=== PATIENT | female | born 1980 | race African-American/Black ===

== ENCOUNTER 2016-08-23 08:15 | Emergency (ER) | payer MEDICAID ==
[~2016-08-23] VITALS: Ht 165.1 cm; Wt 92.0 kg
[~2016-08-23 08:15] MED LIST: DICL50 PO; ROBA750T3 PO
[2016-08-23 08:18] VITALS: BP 116/74; PULSE 52; RESP 14; TEMP 98.1; O2SAT 98
[2016-08-23] MEDS ORDERED: ACET1CAP18 PO (08:28)
[2016-08-23] MEDS ORDERED: ASPI-157 PO (08:28)
--- NOTE | 2016-08-23 08:31 | PD ---
HPI . Acute on chronic back pain Chief Complaint: Back/ Neck Pain or Injury Time Seen by Provider: 08:31 Travel History International Travel<30 days: No Contact w/Intl Traveler<30days: No Traveled to known affect area: No History of Present Illness HPI 35-year-old female with history of chronic back pain stemming back to 2000 with a slip and fall accident and herniated disc here with complaints of worsening back pain. Patient tells me that she's been experiencing intermittent back pain for the past 3 weeks. She is here requesting referrals, xray, and MRI imaging to see if there is anything new with her back. She tells me the pain is moderate to severe and she has been trying Midol, they are aspirin, Tylenol and energy drinks for her pain. She decided to come to the emergency department for further evaluation. At the time of examination she is ambulatory , denies any bowel or bladder dysfunction, or saddle anesthesia. She denies any chance of and tells me her tubes are cut, burned and dry. PFSH Past Medical History ?: Not LMP: 07/23/16 Social History Alcohol Use: No Tobacco Use: No Substance Use: No Allergies-Medications (Allergen,Severity, Reaction): Coded Allergies: Penicillin (Verified Allergy, Severe, Swelling, 08/23/16) Reported Meds & Prescriptions Reported Meds & Active Scripts Active Ibuprofen 800 Mg Tab 800 Mg PO TID Flexeril (Cyclobenzaprine HCl) 5 Mg Tab 5 Mg PO TID Reported Tylenol (Acetaminophen) 325 Mg Cap 325 Mg PO Q6H PRN Dee Back & Body (Aspirin-Caffeine) 500-32.5 Mg Tab 1 Tab PO DIRECTED Review of Systems General / Constitutional: No: Fever Eyes: No: Visual changes HENT: No: Headaches Cardiovascular: No: Chest Pain or Discomfort Respiratory: No: Shortness of Breath Gastrointestinal: No: Abdominal Pain Genitourinary: No: Dysuria Musculoskeletal: Positive: Pain (back pain) Skin: No Rash Neurologic: No: Weakness Psychiatric: No: Depression Endocrine: No: Polydipsia Hematologic/Lymphatic: No: Easy Bruising Physical Exam Narrative GENERAL: AAO x 3, no acute distress, Well-nourished, well-developed patient. SKIN: Warm and dry. No visible rashes or bruising. HEAD: Normocephalic and atraumatic. EYES: No scleral icterus. No injection or drainage. ENT: No nasal drainage noted. Mucous membranes pink. Airway patent. NECK: Supple, trachea midline. No JVD. CARDIOVASCULAR: Regular rate and rhythm without murmurs, gallops, or rubs. RESPIRATORY: Breath sounds equal bilaterally. No accessory muscle use. No rhonchi or rales. GASTROINTESTINAL: Normal visual inspection EXTREMITIES: No cyanosis or edema. NEURO: CN 2-12 intact, sensation is normal, BACK: Nontender without obvious deformity. No CVA tenderness. No spinal process tenderness. There is some paraspinal tenderness in the mid to lower back. Straight leg raise is negative bilaterally. PSYCH: AAO x 3, normal affect. Data Data Last Documented VS Vital Signs Date Time Temp Pulse Resp B/P Pulse Ox O2 Delivery O2 Flow Rate FiO2 08/23/16 08:18 98.1 52 14 116/74 98 MDM Medical Decision Making Medical Screen Exam Complete: Yes Emergency Medical Condition: Yes Medical Record Reviewed: Yes Differential Diagnosis Acute on chronic back pain, lumbar radiculopathy, muscle strain ,less likely cauda equina, Narrative Course 35-year-old female with history of chronic back pain stemming back to 2000 with a slip and fall accident and herniated disc here with complaints of worsening back pain. Patient tells me that she's been experiencing intermittent back pain for the past 3 weeks. She is here requesting referrals, xray, and MRI imaging to see if there is anything new with her back. She tells me the pain is moderate to severe and she has been trying Midol, they are aspirin, Tylenol and energy drinks for her pain. She decided to come to the emergency department for further evaluation. At the time of examination she is ambulatory , denies any bowel or bladder dysfunction, or saddle anesthesia. Patient seen and examined. She is not in any acute signs of distress. She is fully ambulatory. Examination is essentially benign except for some paraspinal tenderness. I have offered her both Toradol and Norflex in the emergency department, which she declines. I will discharge her home with course of muscle relaxers and anti- inflammatories. She will need to follow-up with her primary care provider for further recommendations for imaging and referrals. I explained to her that imaging is not indicated today. Patient verbalized understanding of instructions and questions were answered. I advised them if their condition worsens, please return to the nearest emergency room for further care. Diagnosis Primary Impression: Acute exacerbation of chronic low back pain Patient Instructions: General Instructions Additional Instructions: Please return to emergency department if your symptoms return or worsen. Follow up with your primary care provider. Take medications as prescribed. As we discussed, you will need to follow-up with her primary care provider for recommendations and referrals. Med/Other Pt SpecificInfo: Prescription(s) given Scripts Ibuprofen 800 Mg Mva038 Mg PO TID #21 TAB Prov:Alex Donaldson MD 08/23/16 Cyclobenzaprine (Flexeril)5 Mg Tab5 Mg PO TID #21 TAB Prov:Alex Donaldson MD 08/23/16 Disposition: 01 DISCHARGE HOME Condition: Stable Sabina Brito Aug 23, 2016 08:31
[2016-08-23] MEDS ORDERED: IBUP800T23 PO (08:37)
[2016-08-23] MEDS ORDERED: CYCL5TAB PO (08:37)
== END 2016-08-23 09:29 | disposition home or self-care (01) ==
LOC: NEPK 08:15
DX: M54.5 Low back pain (principal); G89.29 Other chronic pain
CPT/HCPCS: 99282

== ENCOUNTER 2017-03-30 04:13 | Emergency (ER) | payer MEDICAID ==
[~2017-03-30] VITALS: Ht 167.6 cm; Wt 95.0 kg
[~2017-03-30 04:13] MED LIST changes: +ACET1CAP18 PO; +ASPI-157 PO; +CYCL5TAB PO; -DICL50 PO; +IBUP1TAB7 PO; -ROBA750T3 PO
[2017-03-30 04:15] VITALS: BP 133/62; PULSE 61; RESP 18; TEMP 98.3; O2SAT 100
--- NOTE | 2017-03-30 04:27 | PD ---
HPI Chief Complaint: Eye Problems/Injury Time Seen by Provider: 04:18 Travel History International Travel<30 days: No Contact w/Intl Traveler<30days: No Traveled to known affect area: No History of Present Illness HPI 36-year-old female here with right eye irritation and itching. Symptoms started yesterday. She reports that at work she had a thorough blanket over a box and she thinks it may be some dust got into her right eye. She tried flushing her right eye out with water but symptoms persisted which prompted evaluation. Denies matting or purulent drainage. She does not wear contacts. Her last tetanus vaccination was within 5 years. No other complaints. PFSH Past Medical History Medical History: Denies Significant Hx ?: Not LMP: 03/01/17 Past Surgical History Abdominal Surgery: Yes (hernia repair) Section: Yes (x3) Social History Alcohol Use: No Tobacco Use: No Substance Use: No Allergies-Medications (Allergen,Severity, Reaction): Coded Allergies: penicillin G (Verified Allergy, Severe, Swelling, 03/30/17) Reported Meds & Prescriptions Reported Meds & Active Scripts Active Erythromycin Opth Oint 5 Mg/Gm Oint 1 Applic RIGHT EYE TID 7 Days Flexeril (Cyclobenzaprine HCl) 5 Mg Tab 5 Mg PO TID Review of Systems Eyes: Positive: Pain, Tearing, Other (positive for right eye itching), No: Blurred Vision HENT: No: Congestion Respiratory: No: Cough Physical Exam Narrative GENERAL: Well-nourished female in no acute distress SKIN: Warm and dry. HEAD: Atraumatic. Normocephalic. EYES: Pupils equal and round reactive to light extraocular muscles are intact. There is a small black speck foreign body embedded in the right cornea at the 4 o'clock position partially overlying the pupil. Wood's lamp confirms. Negative Shari's.. No scleral icterus. No injection or drainage. ENT: No nasal bleeding or discharge. Mucous membranes pink and moist. NECK: Trachea midline. No JVD. CARDIOVASCULAR: Regular rate and rhythm. No murmur appreciated. RESPIRATORY: No accessory muscle use. Clear to auscultation. Breath sounds equal bilaterally. Data Data Last Documented VS Vital Signs Date Time Temp Pulse Resp B/P (MAP) Pulse Ox O2 Delivery O2 Flow Rate FiO2 03/30/17 04:26 20 03/30/17 04:15 98.3 61 133/62 (85) 100 Orders Orders Proparacaine 0.5% Opth Soln (Alcaine 0.5 (03/30/17 04:30) Ed Discharge Order (03/30/17 04:38) [facility] Medical Decision Making Medical Screen Exam Complete: Yes Emergency Medical Condition: Yes Medical Record Reviewed: Yes Differential Diagnosis Right eye foreign body, corneal abrasion, conjunctivitis Narrative Course Examination reveals small foreign body embedded in the right cornea overlying the pupil at the 4 o'clock position. Most of the foreign body was removed utilizing a moist Q-tip however there was a deeper portion that remained embedded afterwards, repeat Wood's lamp examination continues to reveal a negative Shari's. At this point in time the plan is to discharge the patient with a prescription for erythromycin ophthalmic ointment and have her follow up with ophthalmology today. She is stable for discharge. Diagnosis Primary Impression: Foreign body of right eye Referrals: Taylor Ivy MD Additional Instructions: Follow-up with Dr. Ivy this morning, call to make an appointment. Tylenol or Motrin for pain. Medication as prescribed. Return for any emergent medical conditions. Med/Other Pt SpecificInfo: Prescription(s) given Scripts Erythromycin Opth Oint (Erythromycin Opth Oint) 5 Mg/Gm Oint 1 APPLIC RIGHT EYE TID for Infection for 7 Days, #1 TUBE 0 Refills Prov: Edi Dennis MD 03/30/17 Disposition: 01 DISCHARGE HOME Condition: Stable Skyler Isidro Mar 30, 2017 04:27
[2017-03-30] MEDS ORDERED: PROPARACAINE HCL 0.5% OPHT SOLN 15 ML BTL RIGHT EYE ONE (04:30)
[2017-03-30] MEDS ORDERED: ERYTOIN10 RIGHT EYE (04:38)
== END 2017-03-30 04:50 | disposition home or self-care (01) ==
LOC: NEPD 04:13
DX: T15.01XA Foreign body in cornea, right eye, initial encounter (principal); Z88.0 Allergy status to penicillin
CPT/HCPCS: 99283